=== PATIENT | female | born 1985 ===

== ENCOUNTER → 2019-06-24 | Outpatient (CLI) | payer BC | LOC: LAB SHORT 11:25 → LAB 11:25 | DX: O20.0 Threatened abortion (principal) | CPT/HCPCS: 84702 ==

== ENCOUNTER → 2019-06-30 | Outpatient (CLI) | payer BC | END | disposition home or self-care (01) | LOC: LAB 20:11 → LAB SHORT 20:11 | DX: O03.9 Complete or unspecified spontaneous abortion without complication (principal) | CPT/HCPCS: 84702 ==

== ENCOUNTER → 2019-12-13 | Outpatient (CLI) | payer BC ==
[2019-12-15 15:10] LABS: HPV 16 Negative (Negative); HPV 18 Negative (Negative); HPV OTHER HR TYPES Negative (Negative)
== END | disposition home or self-care (01) ==
LOC: LAB 14:01 → LAB SHORT 14:01
PROVIDERS: Advanced Practice Midwife
DX: Z34.01 Encounter for supervision of normal first pregnancy, first trimester (principal)
CPT/HCPCS: 87624; G0123